=== PATIENT | male | born 1955 | race Caucasian/White ===

== ENCOUNTER 2019-07-28 07:52 | Inpatient (IN) | payer OTHER ==
[2019-07-28] VITALS (63 sets, daily range): BP systolic 76–179; BP diastolic 26–145
[~2019-07-28] VITALS: Ht 177.8 cm; Wt 124.0 kg
[2019-07-28 08:40] LABS: ABSOLUTE BASOPHILS 0.2 thou/uL (0.0-0.2); ABSOLUTE EOSINOPHILS 0.1 thou/uL (0.0-0.7); ABSOLUTE LYMPHOCYTES 1.7 thou/uL (0.8-5.3); ABSOLUTE MONOCYTES 1.2 thou/uL (0.0-1.2); ABSOLUTE NEUTROPHILS 9.3 thou/uL (1.6-8.1); BASOPHILS 1.9 %; EOSINOPHILS 0.7 %; HEMATOCRIT 37.1 % (42.0-52.0); HEMOGLOBIN 12.3 gm/dL (14.0-18.0); LYMPHOCYTES 13.7 %; MCH 37.8 pg (26.0-34.0); MCHC 33.2 g/dL (28.0-37.0); MONOCYTES 9.9 %; MPV 9.1 fl. (7.2-11.1); NUCLEATED RBCS 1 /100WBC; PLATELET COUNT* 202 thou/uL (150-400); POLYS 73.8 %; RBC 3.25 mil/uL (4.50-6.00); RDW-CV 17.1 % (10.5-14.5); WBC 12.5 thou/uL (4.0-11.0)
[2019-07-28 08:54] LABS: CALCIUM 6.8 mg/dL (8.5-10.1); CREATININE 7.5 mg/dL (0.6-1.3); POTASSIUM 4.8 mmol/L (3.5-5.1)
[2019-07-28 08:57] LABS: INR 1.5; PROTIME 15.6 Seconds (9.20-11.50)
[2019-07-28 08:59] LABS: TOTAL BILIRUBIN 6.5 mg/dL (<0.1-1.0); TOTAL PROTEIN 6.2 g/dL (6.4-8.2)
[2019-07-28 09:41] LABS: ANISOCYTOSIS 1+; PLATELET ESTIMATE ADEQUATE
[2019-07-28 09:42] LABS: MACROCYTES 1+
--- NOTE | 2019-07-28 10:10 | NUR ---
SEE PAPER CHART FOR HAT LINER ON CODE
[2019-07-28 10:17] LABS: MAGNESIUM 1.5 mg/dL (1.8-2.4); PHOSPHORUS* 7.2 mg/dL (2.5-4.9)
[2019-07-28 10:50] LABS: BE -7.1 mmol/L (-2 to +3); PO2 99.7 mmHg (75.0-100.0)
[2019-07-28 10:52] LABS: pH 7.174 (7.340-7.450)
[2019-07-28 10:53] LABS: PCO2 60.8 mmHg (35.0-45.0)
[2019-07-28] MEDS ORDERED: ELIQUIS5 MG PO (11:05)
[2019-07-28] MEDS ORDERED: PREDNISONE 5 MG5 M1 PO (11:06)
[2019-07-28] MEDS ORDERED: ANORO ELLIPTA1 EACH INH (11:07)
[2019-07-28] MEDS ORDERED: BUMETANIDE 1 MG1 M1 PO (11:07)
[2019-07-28] MEDS ORDERED: COMBIVENT RESPIM4 GM INH (11:08)
[2019-07-28] MEDS ORDERED: BENAZEPRIL HCL20 MG PO (11:09)
[2019-07-28] MEDS ORDERED: CARVEDILOL12.5 MG PO (11:09)
[2019-07-28] MEDS ORDERED: LIPITOR 20 MG T20 M1 PO (11:10)
[2019-07-28] MEDS ORDERED: PROBIOTIC1 EAC7 PO (11:10)
[2019-07-28] MEDS ORDERED: AZITHROMYCIN500 MG PO (11:11)
[2019-07-28 11:34] LABS: CREATININE 7.4 mg/dL (0.6-1.3); MAGNESIUM 1.4 mg/dL (1.8-2.4); PHOSPHORUS* 8.1 mg/dL (2.5-4.9); POTASSIUM 4.6 mmol/L (3.5-5.1)
[2019-07-28 11:37] LABS: APTT 33.1 Seconds (25.0-31.3); INR 1.6; PROTIME 16.2 Seconds (9.20-11.50)
--- NOTE | 2019-07-28 13:00 | NUR ---
ART LINE INSERTED, RT RADIAL. ARM BOARD IN PLACE.
[2019-07-28 14:42] LABS: BE -10.1 mmol/L (-2 to +3); PCO2 39.9 mmHg (35.0-45.0); PO2 92.1 mmHg (75.0-100.0)
[2019-07-28 14:46] LABS: pH 7.239 (7.340-7.450)
[2019-07-28 15:59] LABS: URINE BILIRUBIN 2+ (Negative); URINE BLOOD 3+ (Negative); URINE CLARITY CLOUDY; URINE COLOR BROWN; URINE GLUCOSE-RANDOM NEGATIVE (Negative); URINE KETONES TRACE (Negative); URINE LEUKOCYTES-REFLEX NEGATIVE (Negative); URINE NITRITE-REFLEX NEGATIVE (Negative); URINE PROTEIN 3+ (Negative); URINE SPECIFIC GRAVITY >= 1.030 (1.005-1.030)
[2019-07-28 16:08] LABS: SQUAMOUS 0-3 Few /LPF (0-3)
[2019-07-28 16:09] LABS: BACTERIA-REFLEX >30 Many /HPF (None Seen); CELLULAR CASTS 0-3 Few /LPF (None Seen); CRYSTALS None Seen /LPF (None Seen); FINE GRANULAR CASTS 0-3 Few /LPF (None Seen); URINE RBC >20 Many /HPF (0-2); URINE WBC-REFLEX 6-15 Few /HPF (0-5)
[2019-07-28 16:11] LABS: ICTOTEST (BILI CONFIRMATORY) Positive (Negative)
[2019-07-28 16:15] LABS: AMP/METHAMP Negative (Negative); BARBITURATES Negative (Negative); BENZODIAZEPINES Negative (Negative); COCAINE Negative (Negative); METHADONE Negative (Negative); OPIATES Negative (Negative); PCP Negative (Negative); THC Negative (Negative)
--- NOTE | 2019-07-28 16:30 | NUR ---
ET TUBE CHANGED BY DR STREET, SIZE 8, FIXED AT 24. VEC 10 MG GIVEN PRIOR PROCEDURE.
[2019-07-28 17:34] LABS: INFLUENZA A ANTIGEN Negative (Negative); INFLUENZA B ANTIGEN Negative (Negative)
--- NOTE | 2019-07-28 19:46 | NUR ---
PT RECEIVED FROM ER AT 0955, CODE ICE INITIATED. TARGET TEMP ACHIEVED AT 1130 BP SOFT ON MAXED LEVOPHED, DOPAMINE STARTED. PRESSORS TITRATED PER PROTOCOL. VENT SUPPORT CONTD. SEDATED WITH PRECEDEX. NS AT 75 MLS/HR. OG AT LIS. CENTRAL LINE DSG CHANGED THRICE D/T SOAKAGE. Q2 TURNS AND ORAL CARE PROVIDED. FAMILY UPDATED.
[2019-07-28 23:26] LABS: PCO2 48.1 mmHg (35.0-45.0); PO2 98.4 mmHg (75.0-100.0)
[2019-07-28 23:27] LABS: pH 7.211 (7.340-7.450)
[2019-07-29] VITALS (70 sets, daily range): BP systolic 66–139; BP diastolic 37–79
[2019-07-29 00:13] LABS: HEMATOCRIT 35.5 % (42.0-52.0); HEMOGLOBIN 12.3 gm/dL (14.0-18.0); MCH 38.2 pg (26.0-34.0); MCHC 34.6 g/dL (28.0-37.0); MCV 110.2 fL (80.0-100.0); MPV 8.7 fl. (7.2-11.1); NUCLEATED RBCS 0 /100WBC; PLATELET COUNT* 257 thou/uL (150-400); RBC 3.22 mil/uL (4.50-6.00); RDW-CV 16.8 % (10.5-14.5); WBC 14.8 thou/uL (4.0-11.0)
[2019-07-29 00:27] LABS: CALCIUM 6.4 mg/dL (8.5-10.1); CREATININE 6.7 mg/dL (0.6-1.3); MAGNESIUM 1.5 mg/dL (1.8-2.4); PHOSPHORUS* 6.8 mg/dL (2.5-4.9); POTASSIUM 3.7 mmol/L (3.5-5.1)
[2019-07-29 00:37] LABS: APTT 32.8 Seconds (25.0-31.3); INR 1.6; PROTIME 16.5 Seconds (9.20-11.50)
[2019-07-29 02:04] LABS: ABSOLUTE EOSINOPHILS 0.3 thou/uL (0.0-0.7); ABSOLUTE LYMPHOCYTES 1.8 thou/uL (0.8-5.3); ABSOLUTE MONOCYTES 0.7 thou/uL (0.0-1.2); CLUMPED PLTS FEW; PLATELET ESTIMATE ADEQUATE; TOXIC GRANULATION 1+
--- NOTE | 2019-07-29 02:10 | NUR ---
RECEIVED REPORT AND ASSUMED CARE AT 1900. ASSESSMENT COMPLETED CHARTED. MEDICATION PER ORDERS. VERSED GTT STARTED R/T PT WAKING UP WHILE COOLED. SPOKE WITH PULM R/T SEDATION AND POSSIBLE NEED FOR VECURONIUM PER CODE ICE PROTOCOL FOR POSSIBLE SHIVERING. PHYSICIAN UNCOMFORTABLE WITH ORDERING D/T NOT BELIEVING PT QUALIFIES FOR HYPOTHERMIA TREATMENT R/T BEING ON PRESSORS. [employer] [facility] CONTACTED, PRN ORDERS RECEIVED.
[2019-07-29 04:54] LABS: INR 1.8; PROTIME 18.1 Seconds (9.20-11.50)
[2019-07-29 05:10] LABS: ALBUMIN 1.5 g/dL (3.4-5.0); MAGNESIUM 1.6 mg/dL (1.8-2.4); POTASSIUM 3.1 mmol/L (3.5-5.1); TOTAL PROTEIN 5.2 g/dL (6.4-8.2)
[2019-07-29 05:11] LABS: CREATININE 5.3 mg/dL (0.6-1.3); TROPONIN-I LEVEL 0.18 ng/mL (<0.06)
[2019-07-29 05:12] LABS: CALCIUM 5.2 mg/dL (8.5-10.1)
[2019-07-29 05:22] LABS: BE -7.1 mmol/L (-2 to +3); PCO2 43.6 mmHg (35.0-45.0); PO2 91.3 mmHg (75.0-100.0)
[2019-07-29 05:23] LABS: pH 7.271 (7.340-7.450)
[2019-07-29 10:43] LABS: CALCIUM 6.6 mg/dL (8.5-10.1); CREATININE 5.6 mg/dL (0.6-1.3)
[2019-07-29 10:45] LABS: POTASSIUM 4.2 mmol/L (3.5-5.1)
--- NOTE | 2019-07-29 14:52 | EKG ---
[place] [address] ELECTROCARDIOGRAM REPORT Name: NILSA MG Room: [address] ADM IN M.R.#: [id number] Admission: 07/28/19 Attend Phys: Ab yañez Sa Discharge: Date of : 53 Date of Service: 07/28/19 0757 Report #: [id number] THIS REPORT FOR: //name// [facility] ED Test Date: 2019-07-28 Test Time: 07:57:56 Pat Name: NILSA MG Department: Room: [facility] Gender: M Chief Controller: : 1955 Requested By: Jackson Jaramillo Order Number: [id number] MD: Ezequiel Archer Measurements Intervals [place] Rate: 99 P: 64 [place]: 166 QRS: 153 QRSD: 103 T: 60 QT: 360 QTc: 462 Interpretive Statements Sinus rhythm Low voltage Left posterior fascicular block Anterior infarct, old No previous ECG available for comparison Electronically Signed On 07-29-2019 14:51:23 CDT by Ezequiel Archer [email or web address] <ELECTRONICALLY SIGNED> By: Ezequiel Archer MD, FACC 07/29/19 1451 0757 0757 Ezequiel Archer MD, [facility] /EPI
--- NOTE | 2019-07-29 15:56 | NUR ---
REWARMING STARTED AT 1155. CORE BODY TEMP STARTED RISING, BP STARTED DROPPING DOWN DESPITE TWO PRESSORS. NS BOLUS 500MLS GIVEN. BLOODY SECRETIONS FROM ORAL SUCTIONING. PHYSICIAN NOTIFIED. PHENYLEPHRINE AND VASOPRESSIN ADDED. ALL FOUR PRESSORS MAXED, BP STABILISED. PROTONIX DRIP STARTED AT 20 MG/HR. FAMILY UPDATED BY DR STEINER.
--- NOTE | 2019-07-29 15:57 | CON ---
[address] [address] CONSULTATION Name: NILSA MG Room: [address] ADM IN M.R.#: [id number] Admission: 07/28/19 Attend Phys: Ab Teran Discharge: Date of : 53 Report #: [id number] THIS REPORT FOR: //name// cc: OLY Trujillo family physician/PCP OLY Trujillo family physician/PCP ~ THIS REPORT FOR: //name// CC: OLY physician/PCP Ab Lockhart ROJASNellie DE LEÓNTHANH DATE OF SERVICE: 07/28/2019 INFECTIOUS DISEASE CONSULTATION REASON FOR CONSULTATION: I was asked to evaluate post-cardiac arrest with bilateral pulmonary infiltrates and COVID-19 suspect. HISTORY OF PRESENT ILLNESS: The patient is a 63-year-old with chronic atrial fibrillation, alcohol abuse, COPD, who was not feeling well the last several days. The patient called 911 for further assistance. They found him conscious, but very lethargic and bradycardic. He became unresponsive and lost his pulse. CPR was initiated. He was resuscitated and brought in through the Emergency Room. Now, he is in the ICU on life support. History was exposed to his boss with COVID-19. He does have a history of COPD and long-term tobacco use. He also has alcohol abuse and a history of cirrhosis. The patient was unable to give any further details for 14-point review of systems. ALLERGIES: None known. MEDICATIONS: As noted on his MAR, having been started on vancomycin, Zosyn, azithromycin, and hydroxychloroquine. Other medications prior to his admission had been Eliquis, prednisone, bumetanide, combination inhalers for COPD, Coreg, Lotensin, Lipitor, probiotic. PAST MEDICAL HISTORY: In addition to above, has had atrial fibrillation, hypertension. FAMILY HISTORY: Lung cancer. 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 PHYSICAL EXAMINATION: VITAL SIGNS: Currently afebrile and hemodynamically stable. He was morbidly obese, on the ventilator. HEENT: Eyes, without scleral icterus. Pupils were [place] [address] CONSULTATION Name: NILSA MG Room: [address] IN [facility].#: [id number] Admission: 07/28/19 Attend Phys: Ab Teran Discharge: Date of : 53 Report #: [id number] Orally intubated. Mucous membranes were moist without lesion. NECK: Supple. No JVD. HEART: Regular, without murmur, gallop, or rub. LUNGS: Coarse bilaterally. ABDOMEN: Soft with no hepatosplenomegaly palpable. Although he was obese. EXTREMITIES: With edema both lower extremities. SKIN: Without rash. He was sedated, on the ventilator. NEUROLOGIC: Not able to be performed. LABORATORY STUDIES: Reviewed. Microbiology reviewed. Chest x-ray reviewed. IMPRESSION: 1. COVID-19 suspect with bilateral pulmonary infiltrates, now respiratory failure. I am suspecting this has led to his cardiovascular arrest. He has now been resuscitated and is on a ventilator, being cared for by Pulmonary Critical Care team in the intensive care unit. 2. Septic shock, requiring vasopressors. 3. Acute renal failure with rhabdomyolysis. 4. Underlying alcoholic cirrhosis with acute hepatitis related either to alcohol or combination of this plus shock state with shock liver. Chronic atrial fibrillation, on anticoagulation. 5. Chronic obstructive pulmonary disease. 6. Elevated BNP, suspecting a component of cardiac injury either from viral infection, alcohol or resuscitative measures. RECOMMENDATIONS: We will continue full supportive measures and resuscitation. Continue with broad antibiotic coverage while awaiting cultures. Continue treatment empirically for COVID-19 with azithromycin and hydroxychloroquine. Nephrology to assist with his rhabdomyolysis and acute kidney injury. Follow serial laboratory studies including liver function test. Overall outlook with multiple comorbidities is poor with increased risk of mortality. <ELECTRONICALLY SIGNED> By: Damian Yuen MD 07/29/19 1557 1807 [id number] Yuen MD /nt
[2019-07-29 17:49] LABS: ABSOLUTE EOSINOPHILS 0.3 thou/uL (0.0-0.7); ABSOLUTE LYMPHOCYTES 0.6 thou/uL (0.8-5.3); ABSOLUTE MONOCYTES 0.9 thou/uL (0.0-1.2); ABSOLUTE NEUTROPHILS 9.3 thou/uL (1.6-8.1); BASOPHILS 0.2 %; EOSINOPHILS 2.6 %; HEMATOCRIT 35.7 % (42.0-52.0); HEMOGLOBIN 12.6 gm/dL (14.0-18.0); LYMPHOCYTES 5.2 %; MCH 38.2 pg (26.0-34.0); MCHC 35.2 g/dL (28.0-37.0); MCV 108.6 fL (80.0-100.0); MONOCYTES 8.1 %; MPV 8.5 fl. (7.2-11.1); NUCLEATED RBCS 0 /100WBC; PLATELET COUNT* 243 thou/uL (150-400); POLYS 83.9 %; RBC 3.28 mil/uL (4.50-6.00); WBC 11.1 thou/uL (4.0-11.0)
[2019-07-29 17:58] LABS: APTT 33.6 Seconds (25.0-31.3); INR 1.6; PROTIME 15.8 Seconds (9.20-11.50)
--- NOTE | 2019-07-29 18:37 | NUR ---
RECEIVED PHONE CALL FROM PT'S CHILDREN. THEY STATES THAT AFTER DISCUSSION WITH DR STEINER AND DISCUSSING THINGS AMONG THEMSELVES THEY WOULD LIKE PT TO BE A DNR. THEY WOULD LIKE TO STOP FURTHER TREATMENT AND KEEP PT COMFORTABLE. THEY WOULD LIKE FOR PT TO BE EXTUBATED"AND LET HIM GO PEACEFULLY. DR STEINER NOTIFIED. ORDERS RECEIVED. DR IBRAHIM NOTIFIED AND AGREES WITH PLAN. FAMILY WOULD LIKE TO BE PRESENT TO SAY GOODBYE TO PT. VISITORS ARE NOT ALLOWED AT THIS TIME. DISCUSSED WITH NURSING TOLL RELIEF OPERATOR TO SEE IF FAMILY CAN BE ALLOWED TO VISIT. DR STEINER OR NURSING TOLL RELIEF OPERATOR TO CALL FAMILY
[2019-07-29 22:07] LABS: HEPATITIS B SURFACE AG Negative (Negative); HIV-1/HIV-2 ANTIBODY Non Reactive (Non Reactive)
--- NOTE | 2019-07-30 00:10 | NUR ---
Pt's family arrived @2014. Pt had been maxed out on pressors (Levophed, Neosynephrine, Vasopressin, and Dopamine), and BP 80s-90s/50s per art line when family arrived. Pt's son (Julian) in room while pt's other son (Ranjan), dtr, sister, and [id number] were outside watching through window of pt's room. Pt extubated at 2030, and pressors dc'd. Pt placed on 2L O2 per NC and remained on Precedex gtt until 2099. Pt's BP decreased steadily, then HR decreased from 80s-90s down to 50s. Pt at 2106. Pt's family left soon afterwards. Pt's body dc'd from unit per home @ 2355 per cart, accompanied by security incident handler.
--- NOTE | 2019-07-30 09:32 | CON ---
[address] [address] CONSULTATION Name: NILSA MG Shagufta Room: [address] IN M.R.#: [id number] Admission: 07/28/19 Attend Phys: Ab Teran Discharge: 07/29/19 Date of : 53 Report #: [id number] THIS REPORT FOR: //name// cc: OLY Trujillo family physician/PCP OLY Trujillo family physician/PCP ~ THIS REPORT FOR: //name// CC: OLY physician/PCP Ab Lockhart ROJASNellie LAW DATE OF SERVICE: 07/28/2019 NEPHROLOGY CONSULTATION CONSULTING PHYSICIAN: Ab Lockhart MD REASON FOR NEPHROLOGY CONSULTATION: Acute kidney injury. REASON FOR ADMISSION: Out of hospital arrest. HISTORY OF PRESENT ILLNESS: This is a 63-year-old male with past medical history of alcohol dependence, COPD, atrial fibrillation, on chronic anticoagulation with Eliquis at home, was found to be unresponsive and bradycardic at home. Around 7:00 a.m. this morning, the patient called his family members saying that he was not feeling well. At 8:00 a.m. when EMS arrived, the patient was found to be bradycardic and unresponsive. He was found to be in PEA and one round of CPR was done and epinephrine was given. I am not sure, but the patient sounds like coded again in the ER here and then was successfully resuscitated. He is currently intubated and sedated on 2 pressors. Moreover, he was exposed for COVID-19 positive patient recently. He also according to his home medications, takes benazepril and bumetanide. His BUN was found to be 65, creatinine of 7.5. Sodium 125. CPK of 6000 and he had elevated leukocyte count is 12.5 and lactate of 7.3 when he came in. I am not able to obtain any review of systems from the patient of course, but after he came in, Pulmonary has adjusted his FiO2 requirement from 100% to 50%. He has not made any urine so far since he has been to the hospital. He has a Parikh catheter in place. ALLERGIES: No known allergies. REVIEW OF SYSTEMS: Not able to obtain. He is currently intubated, sedated. He is on code ICE protocol. FAMILY HISTORY: [place] [address] CONSULTATION Name: NILSA MG Room: [address]#: [id number] Admission: 07/28/19 Attend Phys: Ab Teran Discharge: 07/29/19 Date of : 53 Report #: [id number] PAST MEDICAL HISTORY: We know that he has atrial fibrillation. He is on chronic anticoagulation. He has a history of chronic alcohol dependence and also has a history of COPD. Rest of the history is not known. PAST SURGICAL HISTORY: We do not know. SOCIAL HISTORY: We know that he drinks alcohol every day, how much we do not know. Probably smokes, but we do not have the history available. Recreational drug history is also not known. He lives alone at home. Does have family support. HOME MEDICATIONS: According to the patient's chart, benazepril and bumetanide and other medications were reviewed. I am not sure this is an accurate medication list and if he was actually taking all his medications. PHYSICAL EXAMINATION: VITAL SIGNS: Blood pressure is 94/37, pulse ox 100%. He is on 100% FiO2 when I saw him, temperature 36.8, pulse rate 90, respiratory rate 11, and blood pressure 94/37 on 2 pressors. GENERAL: He is intubated and sedated on code ice protocol. HEAD AND EYES : Atraumatic, normocephalic. Conjunctivae normal. EARS, NOSE, AND THROAT: Normal ears and nose. ET tube in place. NECK: Supple. CHEST: Bilaterally diminished breath sounds anteriorly. No crackles or wheezing heard. CARDIOVASCULAR: S1, S2 normal. No murmurs heard. ABDOMEN: Obese, otherwise soft. Bowel sounds are decreased. EXTREMITIES: There is 2+ lower extremity edema. SKIN: Seems to be dry. NEUROLOGICAL FUNCTION: Currently sedated, not able to obtain. PSYCHIATRIC: Not able to obtain. LABORATORY DATA: WBC 12.5, hemoglobin is 12.3, platelet count is 202. Sodium is 125, potassium is 4.6, BUN is 65, chloride is 87. CO2 was 23, creatinine was 7.4 more recently. Lactic acid was 3.3, it was 7.3 on arrival, pH was 7.174, pCO2 of 60.8. TSH 10.9. CK of 6095. Other labs were reviewed. IMAGING: Various imaging studies: Chest x-ray, abdominal pelvic CT scan without contrast, abdominal x-ray and head CT report were reviewed. ASSESSMENT: 1. Acute kidney injury. Baseline creatinine is not known. This is in the setting of hypotension. The patient is basically in shock, which is likely septic shock, likely COVID-19 infection, it is being ruled out. Creatinine 7.5 on arrival. He is also in rhabdomyolysis, which is also contributing to acute kidney injury and the patient is status post cardiac arrest also contributing to [address] [place] [address] CONSULTATION Name: NILSA MG Room: [address] IN ..#: [id number] Admission: 07/28/19 Attend Phys: Ab yañez [place] Discharge: 07/29/19 Date of : 53 Report #: [id number] acute kidney injury. Although he has edema, he has hypoalbuminemia and he very well could be intravascularly volume depleted, so I am going to give him IV fluids for now, normal saline 75 mL an hour. UA could not be done because he has not had urine output. Renal imaging on the abdominal CT scan did not show any hydronephrosis. 2. Acute hypoxic hypercapnic respiratory failure, evidence of bilateral pneumonitis on chest CT scan. Pulmonary is following. COVID-19 infection is being ruled out. Recent exposure to a patient with COVID-19 infection. 3. Status post cardiac arrest. ROSC achieved. He actually coded on the field. He is on 2 pressors currently. 4. Hyponatremia. 5. The patient actually was initiated on code ICE protocol initially, but then was discontinued because of him being unstable. 6. Rhabdomyolysis. 7. Elevated TSH. 8. History of alcohol dependence. 9. History of chronic obstructive pulmonary disease. 10. Elevated transaminases. Abdominal CT scan showing evidence of cirrhosis and portal hypertension. 11. Hypocalcemia. 12. Hyperphosphatemia. 13 Hypomagnesemia. 14. Chronic atrial fibrillation, on anticoagulation. 15. Hypoalbuminemia. PLAN: 1. Acute kidney injury in the setting of hypotension, shock. He is on benazepril, bumetanide at home. He is currently not making any urine, but he seems to be intravascularly volume depleted and in rhabdomyolysis. We will give him IV fluids at a low rate normal saline at 75 mL an hour. Try to keep a MAP of around 70. Adjust pressors as needed. 2. Avoid nephrotoxic agents, follow labs in the morning including CPK. 3. Calcium replaced. 4. Magnesium replaced. 5. He is on vancomycin. Vancomycin level should be followed and it should not be redosed if random level is greater than 20. 6. Elevated TSH. We will defer to primary to see if it should be treated or followed later on. 7. The patient's prognosis is very guarded. 8. There is no acute need for dialysis yet. We will continue to follow. Discussed with Dr. Lockhart as well as Pulmonology as well as the patient's nurses and we will continue [place] [address] CONSULTATION Name: NILSA MG Room: [address] IN M.R.#: [id number] Admission: 07/28/19 Attend Phys: Ab Teran Discharge: 07/29/19 Date of : 53 Report #: [id number] I spent 35 minutes in Critical Care. This time was spent in chart review, placing orders and care coordination. <ELECTRONICALLY SIGNED> By: Gloria Samuel MD 07/30/19 0932 1332 [id number] Samuel MD /nt
--- NOTE | 2019-07-30 10:13 | EKG ---
[place] [address] ELECTROCARDIOGRAM REPORT Name: NILSA MG Room: [address] IN M.R.#: [id number] Admission: 07/28/19 Attend Phys: Ab yañez Sa Discharge: 07/29/19 Date of : 53 Date of Service: 07/28/192022 Report #: [id number] THIS REPORT FOR: //name// [facility] Test Date: 2019-07-28 Test Time: 20:23:52 Pat Name: NILSA MG Department: Room: [address] Gender: M Staff Analyst: MARIMAR : 1955 Requested By: Ab Lockhart Order Number: [id number] Reading MD: Jose M Jack Measurements Intervals [place] Rate: 60 P: -59 [place]: 133 QRS: 125 QRSD: 110 T: 54 QT: 487 QTc: 487 Interpretive Statements Sinus or ectopic atrial rhythm artifact noted Atrial premature complex Left posterior fascicular block Anterior infarct, old low voltage Compared to ECG 07/28/2019 07:57:56 Ectopic atrial rhythm now present Atrial premature complex(es) now present Myocardial infarct finding still present Electronically Signed On 07-30-2019 10:11:45 CDT by Jose M Jack [email or web address] <ELECTRONICALLY SIGNED> By: Jose M Jack MD, [facility] 07/30/19 1011 22 22 Jose M Jack MD, [facility] /EPI
--- NOTE | 2019-07-30 12:49 | CON ---
[address] [address] CONSULTATION Name: NILSA MG Shagufta Room: [address] IN M.R.#: [id number] Admission: 07/28/19 Attend Phys: Ab Teran Discharge: 07/29/19 Date of : 53 Report #: [id number] THIS REPORT FOR: //name// cc: Physician not on staff Physician not on staff ~ THIS REPORT FOR: //name// CC: [facility] physician/PCP Ab Dick INDICATION: Out of hospital arrest. HISTORY OF PRESENT ILLNESS: The patient is a 63-year-old gentleman who apparently called emergency medical services with complaints of weakness. Upon their arrival, they found the patient to be profoundly unstable. The patient was noted to become bradycardic and unresponsive. At that point in time, CPR was started and epinephrine given. The patient was intubated and resuscitated and brought to the Emergency Room for further treatment. Per the available records, the patient has a history of atrial fibrillation and hypertension. Initial EKG showed sinus rhythm with a left posterior fascicular block. No acute ST or T-wave abnormalities were noted. Initial troponins are less than 0.06 x 2 sets. At the time of my examination, patient remains intubated and unresponsive. No family present for additional history. Medical history available from the chart suggests a history of atrial fibrillation. There is apparently a history of chronic alcohol abuse. REVIEW OF SYSTEMS, FAMILY HISTORY AND SOCIAL HISTORY: Unobtainable. PHYSICAL EXAMINATION: VITAL SIGNS: Presently, blood pressure 117/83, pulse is 98 and regular. GENERAL: This is an obese white male who is intubated and unresponsive. HEENT: Head is normocephalic, atraumatic. ET tube in place. NECK: Thick without obvious jugular venous distention. CHEST: Reveals anterior expiratory wheezes. I do not appreciate rales. CARDIOVASCULAR: Reveals a regular rhythm with normal S1 and S2. I do not appreciate gallop or murmur. ABDOMEN: Protuberant. EXTREMITIES: Show 2 to 3+ pitting edema. SKIN: Dry. Peripheral pulses palpable. LABORATORY DATA: Reviewed. Sodium 125, potassium 4.6, chloride 87, CO2 of 23, BUN 65, creatinine 7.4, serum glucose 146, AST 746, total bilirubin 6.5, calcium 6.0, phosphorus 8.1, magnesium 1.4, alkaline phosphatase 387, ALT 150, total protein 6.2, albumin 2.0, lactic acid 3.3, total LDH 1111. Total CPK 6095. Troponin less than 0.06 on 2 separate occasions. NT-proBNP 2870. TSH 10.995 [place] [address] CONSULTATION Name: NILSA MG Room: [address] IN M.R.#: [id number] Admission: 07/28/19 Attend Phys: Ab Teran Discharge: 07/29/19 Date of : 53 Report #: [id number] consistent with hypothyroidism, folate 4.2. INR 1.6, APTT 33.1. White blood cell count 12.5, hemoglobin 12.3, MCV 114, platelet count 202,000. IMAGING: Chest x-ray fairly unremarkable. CT of the chest suggests bilateral infiltrates suggesting pneumonitis. There were multiple anterior rib fractures, likely due to CPR. CT abdomen and pelvis shows cirrhosis of the liver with portal hypertension. Minimal ascitic fluid noted. IMPRESSION AND RECOMMENDATIONS: 1. Out of hospital arrest, sounds most likely to be a respiratory issue. The patient's initial troponins are unremarkable, suggesting rule out of cardiac issues. The patient intubated and presently oxygenating adequately in the ICU. 2. Elevated CPK consistent with rhabdomyolysis. 3. Acute renal failure with elevated BUN and creatinine as outlined above. 4. Acute liver failure. 5. Cirrhosis of the liver. 6. Chronic alcohol use per history. Presently condition guarded in the ICU. Supportive care as tolerated. The patient is on cooling protocol. No additional recommendations from a cardiac standpoint. <ELECTRONICALLY SIGNED> By: Ezequiel Archer MD, FACC 07/30/19 1249 1245 [id number] Archer MD, FACC /nt
== END 2019-07-29 21:07 | DRG 871 ==
LOC: M.ERS 07:52 → M.TBA-ER 08:49 → M.ICU 08:49
PROVIDERS: Family Medicine; Internal Medicine; Specialist; ADMIT Family Medicine
PROC: 02HV33Z Insertion of Infusion Device into Superior Vena Cava, Percutaneous Approach (ICD-10-PCS; principal; 2019-07-28)
PROC: 0BH17EZ Insertion of Endotracheal Airway into Trachea, Via Natural or Artificial Opening (ICD-10-PCS; principal; 2019-07-28)
PROC: B548ZZA Ultrasonography of Superior Vena Cava, Guidance (ICD-10-PCS; principal; 2019-07-28)
PROC: 5A1945Z Respiratory Ventilation, 24-96 Consecutive Hours (ICD-10-PCS; principal; 2019-07-28)
DX: A41.9 Sepsis, unspecified organism (principal); R65.21 Severe sepsis with septic shock; J96.02 Acute respiratory failure with hypercapnia; J96.01 Acute respiratory failure with hypoxia; K72.00 Acute and subacute hepatic failure without coma; J18.9 Pneumonia, unspecified organism; G92 Toxic encephalopathy; N17.9 Acute kidney failure, unspecified; E87.1 Hypo-osmolality and hyponatremia; M62.82 Rhabdomyolysis; I48.20 Chronic atrial fibrillation, unspecified; D68.59 Other primary thrombophilia; K76.6 Portal hypertension; I47.2 Ventricular tachycardia; J44.0 Chronic obstructive pulmonary disease with (acute) lower respiratory infection; Z66 Do not resuscitate; I10 Essential (primary) hypertension; E80.6 Other disorders of bilirubin metabolism; I46.9 Cardiac arrest, cause unspecified; E83.39 Other disorders of phosphorus metabolism; F10.10 Alcohol abuse, uncomplicated; Y90.3 Blood alcohol level of 60-79 mg/100 ml; D75.89 Other specified diseases of blood and blood-forming organs; K70.30 Alcoholic cirrhosis of liver without ascites; K70.10 Alcoholic hepatitis without ascites; E53.8 Deficiency of other specified B group vitamins; E66.9 Obesity, unspecified; E88.09 Other disorders of plasma-protein metabolism, not elsewhere classified; E83.51 Hypocalcemia; Z80.1 Family history of malignant neoplasm of trachea, bronchus and lung; Z80.8 Family history of malignant neoplasm of other organs or systems; Z87.891 Personal history of nicotine dependence; Z79.01 Long term (current) use of anticoagulants; Z68.38 Body mass index [BMI] 38.0-38.9, adult; Z20.828 Contact with and (suspected) exposure to other viral communicable diseases